=== PATIENT | female | born 1980 | race Two or more races ===

== ENCOUNTER 2017-10-21 11:03 | Day surgery (SDC) | payer BC ==
[~2017-10-21] VITALS: Ht 160 cm; Wt 97.2 kg
[~2017-10-21 11:03] MED LIST: ACET250T2 PO; BUPIVACAINE/PF 0.5% ONE; EPINEPHRINE 1 MG/ML, 1ML ONE; IBUP-1222 PO; OXYC-302 PO; OXYC1TAB7 PO; PREN1TAB52 PO; [UNRECOGNIZED DRUG - REMARK]
[2017-10-21] MEDS ORDERED: FENTANYL PF 100 MCG/2ML ONE (11:13)
[2017-10-21] MEDS ORDERED: MIDAZOLAM 1 MG/ML, 2ML ONE (11:14)
[2017-10-21 11:32] VITALS: BP 101/59
[2017-10-21] MEDS ORDERED: PROPOFOL 50 ML ONE (11:35)
[2017-10-21] MEDS ORDERED: LACTATED RINGERS 1,000 ML IV SCH (11:48)
[2017-10-21] MEDS ORDERED: ONDANSETRON ODT 8 MG ONE (11:53)
[2017-10-21] MEDS ORDERED: SCOPOLAMINE PATCH, 1.5MG PATCH.TD72 TD ONE ×2 (11:53→12:00)
[2017-10-21] MEDS ORDERED: ACETAMINOPHEN 500 MG TABLET ONE (11:54)
[2017-10-21] MEDS ORDERED: GABAPENTIN 300 MG CAPSULE ONE (11:54)
[2017-10-21] MEDS ORDERED: ONDANSETRON ODT 8 MG PO ONE (12:00)
[2017-10-21] MEDS ORDERED: ACETAMINOPHEN 500 MG TABLET PO ONE (12:00)
[2017-10-21] MEDS ORDERED: GABAPENTIN 300 MG CAPSULE PO ONE (12:00)
[2017-10-21] MEDS ORDERED: PROPOFOL 10 MG/ML, 20ML ONE (12:21)
[2017-10-21] MEDS ORDERED: CEFAZOLIN 1,000 MG ONE (12:21)
[2017-10-21] MEDS ORDERED: METOCLOPRAMIDE 5 MG/ML, 2ML ONE (12:21)
[2017-10-21] MEDS ORDERED: DEXAMETHASONE 4 MG/ML, 1ML ONE (12:21)
[2017-10-21] MEDS ORDERED: ONDANSETRON 2MG/ML, 2ML ONE (12:21)
[2017-10-21] MEDS ORDERED: EPHEDRINE 50 MG/ML, 1ML IM PRN (12:30)
[2017-10-21] MEDS ORDERED: ALBUTEROL/IPRATROPIUM 2.5MG/0.5MG, 3 ML NPPB PRN (12:30)
[2017-10-21] MEDS ORDERED: DIPHENHYDRAMINE 50 MG/ML, 1ML IVPush PRN (12:30)
[2017-10-21] MEDS ORDERED: ONDANSETRON ODT 8 MG PO PRN (12:30)
[2017-10-21] MEDS ORDERED: OXYcodone 5 MG/5 ML ORAL.SOL UDC PO PRN (12:30)
[2017-10-21] MEDS ORDERED: LABETALOL 5MG/ML, 20ML IV PRN (12:30)
[2017-10-21] MEDS ORDERED: PROMETHAZINE 25 MG/ML, 1ML IV PRN (12:30)
[2017-10-21] MEDS ORDERED: MEPERIDINE/PF 25MG/0.5ML IVPush PRN (12:30)
[2017-10-21] MEDS ORDERED: MORPHINE SULFATE 4 MG/ML, 1ML IVPush PRN (12:30)
[2017-10-21] MEDS ORDERED: FENTANYL PF 100 MCG/2ML IV PRN (12:30)
[2017-10-21] MEDS ORDERED: PROMETHAZINE 25 MG SUPP PR PRN (12:30)
[2017-10-21] MEDS ORDERED: MIDAZOLAM 1 MG/ML, 2ML IV PRN (12:30)
[2017-10-21] MEDS ORDERED: OXYcodone 5 MG/5 ML ORAL.SOL UDC ONE (13:04)
[2017-10-21] MEDS ORDERED: MEPERIDINE/PF 50 MG/ML ONE (13:04)
[2017-10-21] MEDS ORDERED: EPHEDRINE 50 MG/ML, 1ML ONE (15:34)
== END 2017-10-21 15:15 ==
LOC: OUT 11:03
PROVIDERS: ATTEND Surgery
DX: D24.2 Benign neoplasm of left breast (principal); E66.9 Obesity, unspecified
CPT/HCPCS: 19120; 88305; J0171; J0690; J1100; J2175; J2250; J2704; J2765; J3010; J3490; J7120; Q0162; J2405